=== PATIENT | male | born 1945 | race Caucasian/White ===

== ENCOUNTER 2018-08-19 10:54 | Emergency (ER) | payer MEDICARE, OTHER ==
[2018-08-19 11:25] VITALS: BP 147/64; PULSE 68; O2SAT 98
--- NOTE | 2018-08-19 11:35 | ERPHSYRPT ---
- History of Present Illness Time Seen by Provider: 08/19/18 11:31 Source: patient Exam Limitations: no limitations Patient Subjective Stated Complaint: states has had intermittent dizziness for two days. worse today. denies any other problems at this time. denies pain. 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 Triage Nursing Assessment: ambulated to room per self. skin w/d, color normal, resp easy. no difficulty with ambulation. a/o times three. denies any n/v. Physician History: Patient states has had intermittent dizziness for two days. worse today. denies any other problems at this time Timing/Duration: today Associated Symptoms: denies symptoms Allergies/Adverse Reactions: No Known Drug Allergies Allergy (Verified 08/19/18 11:12) Home Medications: Albuterol Sulfate [Proair Hfa] 2 puff IH BIDPRN PRN 09/28/15 [History] Levothyroxine Sodium 50 Mcg [Synthroid 50 Mcg] 1 tab PO DAILY 09/28/15 [ History] Lorazepam 1 mg [Ativan 1 MG] 1 tab PO HS 09/28/15 [History] Tiotropium [place] Inhaler [Spiriva 18 Mcg/Cap Inhaler] 1 puff IH DAILY [History] Tramadol HCl 50 mg [Ultram 50 mg] 1 tab PO BIDPRN PRN 09/28/15 [History] Hx Tetanus, Diphtheria Vaccination/Date Given: No Hx Influenza Vaccination/Date Given: Yes Hx Pneumococcal Vaccination/Date Given: Yes Immunizations Up to Date: No - Review of Systems Constitutional: No Fever, No Chills Eyes: No Symptoms Ears, Nose, & Throat: No Symptoms Respiratory: No Cough, No Dyspnea Cardiac: No Chest Pain, No Edema, No Syncope Abdominal/Gastrointestinal: No Abdominal Pain, No Nausea, No Vomiting, No Diarrhea Genitourinary Symptoms: No Dysuria Musculoskeletal: No Back Pain, No Neck Pain Skin: No Rash Neurological: Dizziness (sense of imbalance), No Focal Weakness, No Sensory Changes Psychological: No Symptoms Endocrine: No Symptoms All Other Systems: Reviewed and Negative - Past Medical History Pertinent Past Medical History: Yes Neurological History: No Pertinent History ENT History: Cataracts, Macular Degeneration Cardiac History: Other Respiratory History: COPD Endocrine Medical History: Hypothyroidism Musculoskeletal History: Arthritis GI Medical History: No Pertinent History History: No Pertinent History Psycho-Social History: Anxiety Male Reproductive Disorders: No Pertinent History Other Medical History: cataract on right eye no surgery yet has macular degeneration, has arthritis, has anxiety he takes lorazepam prn for - Past Surgical History Past Surgical History: Yes Neuro Surgical History: No Pertinent History Cardiac: No Pertinent History Respiratory: No Pertinent History Gastrointestinal: No Pertinent History Genitourinary: No Pertinent History Musculoskeletal: Joint Replacement Male Surgical History: No Pertinent History Other Surgical History: had left knee replacement, right elbow surgery for pinched nerve in right arm to relieve numbness in right arm, had eye surgery on right eye years ago to help with distance vision but didnt help - Social History Smoking Status: Former smoker Exposure to second hand smoke: No Drug Use: none Patient Lives Alone: No - Nursing Vital Signs Nursing Vital Signs: Initial Vital Signs Temperature 96.5 F 08/19/18 11:02 Pulse Rate 68 08/19/18 11:02 Respiratory Rate 16 08/19/18 11:02 Blood Pressure 147/64 08/19/18 11:02 O2 Sat by Pulse Oximetry 98 08/19/18 11:02 Pain Scale Pain Intensity 0 - Physical Exam General Appearance: no apparent distress, alert Eye Exam: PERRL/EOMI, eyes nml inspection Ears, Nose, Throat Exam: normal ENT inspection, TMs normal, pharynx normal, moist mucous membranes Neck Exam: normal inspection, non-tender, supple, full range of motion Respiratory Exam: normal breath sounds, lungs clear, No respiratory distress Cardiovascular Exam: regular rate/rhythm, normal heart sounds, normal peripheral pulses Gastrointestinal/Abdomen Exam: soft, normal bowel sounds, No tenderness, No mass Back Exam: normal inspection, normal range of motion, No CVA tenderness, No vertebral tenderness Extremity Exam: normal inspection, normal range of motion, pelvis stable Neurologic Exam: alert, oriented x 3, cooperative, normal mood/affect, nml cerebellar function, nml station & gait, sensation nml, No motor deficits Skin Exam: normal color, warm, dry, No rash Lymphatic Exam: No adenopathy SpO2: 98 - Course Nursing assessment & vital signs reviewed: Yes - Progress Progress: unchanged Counseled pt/family regarding: diagnosis, need for follow-up - Departure Time of Disposition: 11:34 Departure Disposition: Home Clinical Impression: Dizziness, nonspecific Condition: Stable Critical Care Time: No Referrals: SANGITA WHITFIELD [Primary Care Provider] - Instructions: Dizziness, Nonvertigo, (DC) Prescriptions: Meclizine HCl 25 mg [Antivert 25 mg] 25 mg PO TID PRN #30 tablet
== END 2018-08-19 11:43 | disposition home or self-care (01) ==
LOC: ED 10:54
DX: R42 Dizziness and giddiness (principal); J44.9 Chronic obstructive pulmonary disease, unspecified; E03.9 Hypothyroidism, unspecified; M19.90 Unspecified osteoarthritis, unspecified site; F41.9 Anxiety disorder, unspecified
CPT/HCPCS: 99283

== ENCOUNTER 2018-11-05 05:53 | Day surgery (SDC) | payer MEDICARE, OTHER ==
[2018-11-05] MEDS ORDERED: DIPRIVAN 200 MG/20 ML IV ONE (05:54)
[2018-11-05] MEDS ORDERED: Ketamine HCl 50 MG/ML IV ONE (05:54)
[2018-11-05] MEDS ORDERED: Lactated Ringers 1,000 ML IV SCH (06:30)
[2018-11-05 08:52] VITALS: O2SAT 96
[2018-11-05 08:57] VITALS: BP 134/69; PULSE 52
--- NOTE | 2018-11-05 09:16 | OP ---
SURGERY DATE/TIME: 11/05/2018 0734 PREOPERATIVE DIAGNOSIS: History of colon polyps. POSTOPERATIVE DIAGNOSIS: Sigmoid diverticulosis and otherwise normal colon. PROCEDURE: Colonoscopy. SURGEON: Dr. Jmaes. ANESTHESIA: MAC. Medications given by anesthesia department. HISTORY: The patient is a 73 year-old white male patient who reports he had colon polyps removed by Dr. Pierson in [facility] a couple of years ago. The patient is here now for re-investigation due to multiple polyps. The patient was appraised of the risks of the procedure including the risk of perforation, phlebitis, untoward reaction to medication, bleeding and missed lesions. The patient verbalized his understanding and desired to have the procedure performed. DESCRIPTION OF PROCEDURE: The patient was given the medications by the anesthesia department. He had continuous pulse oximetry, ECG monitoring, intermittent blood pressure monitoring and tidal CO2 monitoring during the examination. He was placed in the left lateral decubitus position. A digital rectal examination was performed and revealed normal anal sphincter tone and no masses. The prostate was enlarged but smooth and no particular single nodules were felt. The flexible Olympus pediatric colonoscope was used to intubate the rectum. A view of the colon was developed sequentially to the cecum. Upon insertion and withdrawal was noted scattered sigmoid diverticula that were mild in nature. No other mucosal lesions being encountered. The scope was removed from the patient who tolerated the procedure well and sent back to OP recovery in good condition. The prep was noted to be fair to good.
== END 2018-11-05 09:00 | disposition home or self-care (01) ==
LOC: SDC 05:53
PROVIDERS: ATTEND Family Medicine
DX: Z09 Encounter for follow-up examination after completed treatment for conditions other than malignant neoplasm (principal); Z86.010 Personal history of colon polyps; K57.30 Diverticulosis of large intestine without perforation or abscess without bleeding; Z12.5 Encounter for screening for malignant neoplasm of prostate
CPT/HCPCS: 36415; 45378; G0103; 99100; J2704